=== PATIENT | female | born 1945 | race Caucasian/White ===

== ENCOUNTER 2020-05-22 10:21 | Emergency (ER) | payer MEDICARE ==
[~2020-05-22] VITALS: Ht 175.2 cm; Wt 75.4 kg
[2020-05-22 10:35] VITALS: BP 143/54
[2020-05-22] MEDS ORDERED: CHOL500049 (10:48)
[2020-05-22] MEDS ORDERED: DICL75TA2 (10:48)
[2020-05-22] MEDS ORDERED: MISO200T4 (10:48)
[2020-05-22] MEDS ORDERED: FOLIC ACID (10:48)
[2020-05-22] MEDS ORDERED: METH2.5T (10:48)
[2020-05-22] MEDS ORDERED: CYCL10TA9 PO (10:50)
--- NOTE | 2020-05-22 10:51 | ED Back Pain ---
General Chief Complaint: Back Problems Stated Complaint: FALL; BACK PAIN Source of Information: Patient History of Present Illness Date Seen by Provider: May 22, 2020 Time Seen by Provider: 10:45 Initial Comments 74 y/o female presents w intermittent back pain since falling out of her bed a week ago. Pain is worse w certain movements and in certain positions. On arrival to ER, states she has no pain today. Last night she awoke w back pain. Localized to left low back. Hx of RA and sees a Mold Inspector in [place]. Does not have a PCP. Allergies and Home Medications Allergies Coded Allergies: No Known Drug Allergies (Unverified , 05/22/20) Home Medications Cyclobenzaprine HCl 10 Mg Tablet, 5 MG PO qhs PRN for SPASMS Prescribed by: GIULIA DIAZ on 05/22/20 1050 Patient Home Medication List Home Medication List Reviewed: Yes Review of Systems Constitutional: No dizziness, No fever, No malaise; weakness Respiratory: No cough, No short of breath Cardiovascular: No chest pain, No edema, No palpitations, No syncope Gastrointestinal: No abdominal pain, No loss of appetite, No nausea, No vomiting Genitourinary: No dysuria, No frequency, No hematuria Musculoskeletal: back pain; No gout, No joint swelling; muscle pain, muscle stiffness, muscle cramps; No neck pain Skin: No change in color, No lesions, No lumps, No rash Psychiatric/Neurological: Denies Numbness, Denies Paresthesia Past [id number] Hx Past Med/Social Hx: Reviewed Nursing Past Med/Soc Hx Patient Social History Alcohol Use: Denies Use Recreational Drug Use: No Smoking Status: Former Smoker Type Used: Cigarettes Former Smoker, Quit: Sep 14, 1975 Recent Foreign Travel: No Contact w/Someone Who Travel: No Recent Hopitalizations: No Seasonal Allergies Seasonal Allergies: No Past Medical History Surgeries: No Respiratory: No Cardiac: No Neurological: No Genitourinary: No Gastrointestinal: No Musculoskeletal: Yes Rheumatoid Arthritis Endocrine: No HEENT: No Cancer: No Psychosocial: No Integumentary: No Blood Disorders: No Physical Exam Vital Signs Capillary Refill : Height, Weight, BMI Height: '" Weight: lbs. oz. kg; BMI Method: General Appearance: No Apparent Distress, WD/WN Neck: Full Range of Motion, Normal Inspection, Non Tender, Supple Cardiovascular: Regular Rate, Rhythm, No Edema, No Gallop Respiratory: Chest Non Tender, Lungs Clear Back: No CVA Tenderness, No Vertebral Tenderness, Muscle Spasm (Left lower lumbar); No Vertebral Tenderness Extremity: Normal Capillary Refill, Non Tender, No Calf Tenderness, No Pedal Edema Neurologic/Psychiatric: Alert, Oriented x3, No Motor/Sensory Deficits Skin: Normal Color, Warm/Dry Progress/Results/Core Measures Progress Progress Note : Progress Note patient states she does NOT have a PCP as she only sees her Mold Inspector. Also states she hasn't seen him for awhile and plans to get an appointment soon. I encouraged her to establish a PCP as she would likely benefit from PT to help w her back pain and her sense that she is feeling weak overall from not moving as much. Departure Impression Primary Impression: Lumbar sprain Qualified Codes: S33.5XXA - Sprain of ligaments of lumbar spine, initial encounter Disposition: HOME, SELF-CARE Condition: Stable Departure-Patient Inst. Decision time for Depature: 10:48 Referrals: NO,LOCAL PHYSICIAN (PCP/Family) Primary Care Physician Patient Instructions: Lumbar Muscle Strain (DC) Add. Discharge Instructions: Follow up with your Mold Inspector as planned in 1 to 2 weeks. Otherwise, it is advised that you establish a local Primary Care Doctor for medical concerns oth er than your Rheumatoid arthritis. All discharge instructions reviewed with patient and/or family. Voiced understanding. Scripts Cyclobenzaprine HCl (Cyclobenzaprine HCl) 10 Mg Tablet 5 MG PO qhs PRN for SPASMS, #20 TAB 0 Refills Prov: GIULIA DIAZ DO 05/22/20 GIULIA DIAZ DO May 22, 2020 10:51
== END 2020-05-22 11:05 | disposition home or self-care (01) ==
LOC: ER FS 10:25
DX: S33.5XXA Sprain of ligaments of lumbar spine, initial encounter (principal); Z87.891 Personal history of nicotine dependence; W06.XXXA Fall from bed, initial encounter
CPT/HCPCS: 99281

== ENCOUNTER → 2020-05-29 | Outpatient (CLI) | payer MEDICARE, OTHER ==
[~2020-05-29] MED LIST: CHOL500049; CYCL10TA9 PO; DICL75TA2; FOLIC ACID; METH2.5T; MISO200T4
== END ==
LOC: LABNPT 17:44
PROVIDERS: ATTEND Nurse Practitioner Family
DX: R06.02 Shortness of breath (principal)
CPT/HCPCS: 84145

== ENCOUNTER → 2020-05-30 | Outpatient (CLI) | payer OTHER, MEDICARE ==
[~2020-05-30] MED LIST changes: -MISO200T4; +MISO200T62
[2020-05-30 12:50] LABS: EOSINOPHILS % (AUTO) 1 % (0-10); HEMATOCRIT 27 % (35-52); HEMOGLOBIN 8.4 G/DL (11.5-16.0); LYMPHOCYTES % (AUTO) 20 % (12-44); MEAN CORPUSCULAR HEMOGLOBIN 35 PG (25-34); MEAN CORPUSCULAR HGB CONC 31 G/DL (32-36); MEAN CORPUSCULAR VOLUME 113 FL (80-99); MONOCYTES % (AUTO) 39 % (0-12); NEUTROPHILS % (AUTO) 40 % (42-75); PLATELET COUNT 66 10^3/uL (130-400)
[2020-05-30 12:51] LABS: BASOPHILS % (AUTO) 0 % (0-10); EOSINOPHILS # (AUTO) 0.1 10^3/uL (0.0-0.3); LYMPHOCYTES # (AUTO) 1.8 X 10^3 (1.0-4.0); MONOCYTES # (AUTO) 3.5 X 10^3 (0.0-1.0); NEUTROPHILS # (AUTO) 3.6 X 10^3 (1.8-7.8)
[2020-05-30 13:19] LABS: BAND NEUTROPHILS 7 %; LYMPHOCYTES % (MANUAL) 16 %; MONOCYTES % (MANUAL) 27 %
[2020-05-30 13:20] LABS: HYPOCHROMASIA SLIGHT; NUCLEATED RED BLOOD CELLS 3; POLYCHROMASIA MODERATE
[2020-05-30 13:21] LABS: ANISOCYTOSIS MARKED
[2020-05-30 13:58] LABS: NEUTROPHILS % (MANUAL) 40 %; PROMYELOCYTES % 5 %
[2020-05-30 14:19] LABS: BLAST CELLS 5 %
== END ==
LOC: GIR 12:39
PROVIDERS: ATTEND Nurse Practitioner Family
DX: Z01.89 Encounter for other specified special examinations (principal)
CPT/HCPCS: 85007; 85027